=== PATIENT | female | born 1925 | race Caucasian/White ===

== ENCOUNTER 2016-08-15 07:19 | Emergency (ER) | payer BC, MEDICARE, OTHER ==
[~2016-08-15] VITALS: Wt 82.0 kg
[2016-08-15 07:22] VITALS: Wt 82.0 kg
[2016-08-15 07:48] LABS: ADD SCAN DIFF NO
[2016-08-15 07:53] LABS: ABNORMAL IP MESSAGE 1; BASOPHILS % 0.1 % (0.0-2.0); EOSINOPHILS # 0.2 10^3/ul (0.0-0.5); EOSINOPHILS % 0.8 % (0.0-7.0); HEMATOCRIT 30.5 % (37.0-47.0); HEMOGLOBIN 9.3 g/dl (12.0-16.0); LYMPHOCYTES # 5.5 10^3/ul (0.8-2.9); LYMPHOCYTES % 24.3 % (15.0-51.0); MEAN CORPUSCULAR HEMOGLOBIN 28.4 pg (29.0-33.0); MEAN CORPUSCULAR HGB CONC 30.5 g/dl (32.0-37.0); MEAN CORPUSCULAR VOLUME 93.3 fl (82.0-101.0); MEAN PLATELET VOLUME 12.2 fl (7.4-10.4); MONOCYTE # 1.5 10^3/ul (0.3-0.9); MONOCYTES % 6.6 % (0.0-11.0); NEUTROPHIL # 15.2 10^3/ul (1.6-7.5); NEUTROPHILS % 66.8 % (39.0-77.0); NUCLEATED RED BLOOD CELLS% 0.1 /100WBC (0.0-0.0); PLATELET COUNT 386 10^3/UL (140-415); RED BLOOD COUNT 3.27 10^6/ul (4.20-5.40); RED CELL DISTRIBUTION WIDTH 16.9 % (11.5-14.5); WHITE BLOOD COUNT 22.8 10^3/ul (4.8-10.8)
[2016-08-15] MEDS ORDERED: ATOR20TA38 PO (08:01)
[2016-08-15] MEDS ORDERED: ASPI-664 PO (08:01)
[2016-08-15] MEDS ORDERED: NIT4 SL (08:02)
[2016-08-15] MEDS ORDERED: OMEP20CA16 PO (08:02)
[2016-08-15] MEDS ORDERED: BRIM15DR7 BOTH EYES (08:03)
[2016-08-15 08:04] LABS: INR 1.06; PROTIME 13.8 Sec (12.2-14.2); PT RATIO 1.1
[2016-08-15] MEDS ORDERED: DORZ10DR22 BOTH EYES (08:04)
[2016-08-15 08:05] LABS: PARTIAL THROMBOPLASTIN TIME 30.6 Sec (25.0-35.0)
[2016-08-15] MEDS ORDERED: DOCU-159 PO (08:05)
[2016-08-15] MEDS ORDERED: SENN-53 PO (08:06)
[2016-08-15 08:08] LABS: ALBUMIN 3.3 g/dl (3.3-4.9); ALBUMIN/GLOBULIN RATIO 1.13; CALCIUM 9.1 mg/dl (8.4-10.2); CREATININE 1.9 mg/dl (0.44-1.00); POTASSIUM 5.3 mmol/L (3.5-5.1); TOTAL PROTEIN 6.2 g/dl (6.1-8.1)
[2016-08-15] MEDS ORDERED: CLOB15OI15 TOP (08:08)
[2016-08-15] MEDS ORDERED: LORA0.5T PO (08:10)
[2016-08-15] MEDS ORDERED: TRAM-40 PO (08:11)
[2016-08-15] MEDS ORDERED: LATA2.5D2 BOTH EYES (08:11)
[2016-08-15] MEDS ORDERED: ALLO100T PO (08:12)
[2016-08-15] MEDS ORDERED: PRED20TA PO (08:13)
[2016-08-15] MEDS ORDERED: MULT-762 PO (08:14)
[2016-08-15] MEDS ORDERED: CEPH250C PO (08:15)
--- NOTE | 2016-08-15 08:15 | RADRPT ---
PROCEDURE: XR Chest. CLINICAL INDICATION: Chest pain. TECHNIQUE: Single frontal portable chest was obtained. COMPARISON: [id number].. FINDINGS: There is mild cardiomegaly. There is calcification in the thoracic aorta. Upper lobe vasculature i s mildly prominent. There are diffuse interstitial infiltrates with some scattered Ivan B lines. No focal airspace consolidation is seen. There are mid sternotomy wires. There are small bilateral pleural effusions. IMPRESSION: 1. Cardiomegaly with prominence the upper lobe vasculature in diffuse interstitial infiltrates likel y reflecting congestion and mild edema. 2. Small bilateral pleural effusions. 3. No airspace consolidation identified. RPTAT: [facility] Physician Darlin Date Time Electronically viewed and signed by Wilner Brown Physician on 08/15/2016 08:15 /
[2016-08-15] MEDS ORDERED: BTM.05O15 TOP (08:16)
[2016-08-15] MEDS ORDERED: KEN1O TOP (08:18)
[2016-08-15] MEDS ORDERED: IPRA3AMP INHALATION (08:19)
[2016-08-15 08:20] LABS: TROPONIN-I 0.042 ng/ml (0.00-0.12)
[2016-08-15] MEDS ORDERED: FUROSEMIDE 40 MG INJ IV ONE (09:00)
--- NOTE | 2016-08-15 09:19 | ERA ---
ER Documentation Chief Complaint Date/Time DATE: 08/15/16 TIME: 09:13 Chief Complaint cp with mod sob while in restroom this morning. no diaphoresis. no n/v HPI This is a 89-year-old female who was brought in by EMS for acute shortness of breath. Apparently the patient was just discharged from [facility] 2 days ago. Patient states she was getting up to go to the bathroom and walking she became suddenly short of breath. She says she has had no fever no cough but did have a cough 2 weeks ago that is now resolved. She has no chest pain no palpitations no diaphoresis. Apparently the patient is a DO NOT RESUSCITATE. She was brought in distress by EMS ROS All systems reviewed and are negative except as per history of present illness. Medications Home Meds Reported Medications Ipratropium-Albuterol (Ipratropium-Albuterol) 0.5-3 Mg/3 Ml Ampul.neb, 3 ML INHALATION Q4 Y for WHEEZING AND SOB, #30 VIAL 08/15/16 Triamcinolone Acetonide* (Kenalog*) 0.1%-15GM Oint, 1 APPLIC TOP BID, #1 EA 08/15/16 Betamethasone Dipropionate* (Betamethasone Dipropionate*) 0.05% - 15 Gm Oint, 1 APPLIC TOP BID, TUB APPLY TO: 08/15/16 Cephalexin* (Cephalexin*) 250 Mg Capsule, 250 MG PO DAILY, #28 CAP STARTED 08-13-16 FOR 7 DAYS 08/15/16 Multivitamin (MULTI-VITAMIN DAILY) 1 Each Tablet, 1 TAB PO DAILY, TAB 08/15/16 Prednisone* (Prednisone*) 20 Mg Tab, 40 MG PO QAM, TAB STARTED 08-13-16 FOR 2 WEEKS WILL BE TAPERED BY DERMATOLOGY OUTPATIENT 08/15/16 Allopurinol* (Allopurinol*) 100 Mg Tablet, 100 MG PO DAILY, TAB 08/15/16 Tramadol Hcl* (Ultram*) 50 Mg Tablet, 50 MG PO Q8 Y for PAIN, TAB 08/15/16 Latanoprost (Latanoprost) 2.5 Ml Drops, 1 DROP BOTH EYES QHS, #1 BOTTLE 08/15/16 Lorazepam* (Lorazepam*) 0.5 Mg Tablet, 0.25 MG PO BID Y for ANXIETY, TAB 08/15/16 Clobetasol Propionate* (Clobetasol Propionate*) 15 Gm Oint, 1 APPLIC TOP BID Y for PRN, #1 TUB ON SCALP 08/15/16 Sennosides* (Senna Lax*) 8.6 Mg Tablet, 2 TAB PO QHS Y for CONSTIPATION, TAB 08/15/16 Docusate Sodium* (Docusate Sodium*) 100 Mg Capsule, 1-2 CAP PO QHS, #60 CAP 08/15/16 Dorzolamide-Timolol* (Cosopt*) 2%-0.5% - 10 Ml Soln, 1 DROP BOTH EYES BID, BOTTLE 08/15/16 Brimonidine Tartrate* (Brimonidine Tartrate*) 0.2%-15ML Drop Opht, 1 DROP BOTH EYES BID, #1 EA 08/15/16 Omeprazole* (Omeprazole*) 20 Mg Capsule.dr, 20 MG PO DAILY, #30 CAP 08/15/16 Nitroglycerin* (Nitrostat*) 0.4 Mg Tab.subl, 0.4 MG SL Q5MIN Y for CHEST PAIN, BOTTLE 08/15/16 Atorvastatin Calcium* (Atorvastatin Calcium*) 20 Mg Tablet, 20 MG PO QHS, #30 TAB 08/15/16 Aspirin (Low Dose Aspirin) 81 Mg Tablet.dr, 81 MG PO DAILY, #30 TAB 08/15/16 Allergies Allergies: Coded Allergies: No Known Drug Allergy (Verified Allergy, Mild, 08/15/16) adhesive tape (Unverified Allergy, Unknown, SKIN RASH/HIVES, 08/15/16) PMhx/Soc Hx Respiratory Disorders: Yes (copd. chf. dm. high cholesterol . open heart ) Hx Tobacco Use: Yes Smoking Status: Former smoker FmHx Family History: No coronary disease Physical Exam Vitals Vital Signs Date Time Temp Pulse Resp B/P Pulse Ox O2 Delivery O2 Flow Rate FiO2 08/15/16 07:36 123 100 100 08/15/16 07:22 97.9 132 30 130/91 98 Physical Exam Const: Well-developed, well-nourished acute respiratory distress Head: Atraumatic, normocephalic Eyes: Normal Conjunctiva, PERRLA, EOMI, normal sclera, no nystagmus ENT: Normal External Ears, Nose and Mouth, moist mucus membranes. Neck: Full range of motion. No meningismus, no lymphadenopathy. Resp: Acute respiratory distress with difficulty breathing using accessory muscles, diffuse scattered rhonchi decreased breath sounds bilaterally Cardio: Irregular rate and rhythm heart rate 120, no murmurs, S1 S2 present Abd: Soft, non tender x 4, non distended. Normal bowel sounds, no guarding or rebound, no pulsitile abdominal masses or bruits Skin: No petechiae or rashes, no ecchymosis , no maculopapular rash Back: No midline or flank tenderness Ext: No cyanosis, or edema, FROM x 4, normal inspection, neurovascularly intact x 4, bilateral legs and left upper extremity are bandaged with Kerlix Neur: Awake and alert, STR 5/5 x 4, sensation intact x 4, no focal findings, cerebellum intact Psych: Normal Mood and Affect Result Diagram: 08/15/16 0732 08/15/16 0732 Results 24 hrs Laboratory Tests Test 08/15/16 07:32 White Blood Count 22.810^3/ul Red Blood Count 3.2710^6/ul Hemoglobin 9.3g/dl Hematocrit 30.5% Mean Corpuscular Volume 93.3fl Mean Corpuscular Hemoglobin 28.4pg Mean Corpuscular Hemoglobin Concent 30.5g/dl Red Cell Distribution Width 16.9% Platelet Count 92381^3/UL Mean Platelet Volume 12.2fl Neutrophils % 66.8% Lymphocytes % 24.3% Monocytes % 6.6% Eosinophils % 0.8% Basophils % 0.1% Nucleated Red Blood Cells % 0.1/100WBC Neutrophils # 15.210^3/ul Lymphocytes # 5.510^3/ul Monocytes # 1.510^3/ul Eosinophils # 0.210^3/ul Basophils # 0.010^3/ul Nucleated Red Blood Cells # 0.010^3/ul Prothrombin Time 13.8Sec Prothrombin Time Ratio 1.1 INR International Normalized Ratio 1.06 Activated Partial Thromboplast Time 30.6Sec Sodium Level 130mmol/L Potassium Level 5.3mmol/L Chloride Level 100mmol/L Carbon Dioxide Level 22mmol/L Anion Gap 13 Blood Urea Nitrogen 84mg/dl Creatinine 1.90mg/dl Glucose Level 225mg/dl Calcium Level 9.1mg/dl Total Bilirubin 0.0mg/dl Direct Bilirubin 0.00mg/dl Indirect Bilirubin 0.0mg/dl Aspartate Amino Transf (AST/SGOT) 29IU/L Alanine Aminotransferase (ALT/SGPT) 28IU/L Alkaline Phosphatase 92IU/L Troponin I 0.042ng/ml B-Type Natriuretic Peptide 95438XV/ML Total Protein 6.2g/dl Albumin 3.3g/dl Globulin 2.90g/dl Albumin/Globulin Ratio 1.13 Current Medications Medications (Trade) Dose Ordered Sig/Kimberlee Route PRN Reason Start Time Stop Time Status Last Admin Dose Admin Furosemide (Lasix) 60 mg ONCE ONCE IV 08/15/16 09:00 08/15/16 09:01 DC Procedures/MDM EKG: Rate/Rhythm: Atrial fibrillation with rapid ventricular response heart rate 122, inferior Q waves, QRS, ST, QT: NORMAL MO, QRS, QT] Impression: Atrial fibrillation with rapid ventricular response PROCEDURE: XR Chest. CLINICAL INDICATION: Chest pain. TECHNIQUE: Single frontal portable chest was obtained. COMPARISON: [id number].. FINDINGS: There is mild cardiomegaly. There is calcification in the thoracic aorta. Upper lobe vasculature is mildly prominent. There are diffuse interstitial infiltrates with some scattered Ivan B lines. No focal airspace consolidation is seen. There are mid sternotomy wires. There are small bilateral pleural effusions. IMPRESSION: 1. Cardiomegaly with prominence the upper lobe vasculature in diffuse interstitial infiltrates likely reflecting congestion and mild edema. 2. Small bilateral pleural effusions. 3. No airspace consolidation identified. RPTAT: [facility] Physician Darlin Date Time Electronically viewed and signed by Wilner Brown Physician on 08/15/2016 08: 15 JH/ CC: VICTOR M LENNON DO Patient was promptly put on BiPAP on arrival. Patient was requiring intubation however she is a DNR. BiPAP was successful in converting her distress. The patient has markedly improved respirations. She is currently resting comfortably. Heart rate is now in atrial fibrillation at 94 beats She was given intravenous Lasix 60 mg IV, will attempt to wean off BiPAP soon Family is at bedside and wants her transferred to [facility] No evidence of pneumonia on chest x-ray there is diffuse bilateral interstitial edema, white blood count is 22.8 likely demargination from stress. Patient does not clinically present with pneumonia Critical Care Time: 35 minutes Treatments/Evaluations: Close monitoring and treatment of unstable vital signs, cardiorespiratory, and neurologic status, while maintaining tight balance of fluid, respiratory, and cardiac interventions. This time includes discussing the case with the patient and the patient's family. This time does not include all procedures stated elsewhere in this record. This time also includes reviewing old records, labs and radiological studies. This time includes examining and re-examining the patient. Additionally, this time also includes arranging care with admitting and consulting physicians. We will call [facility] and speak with him and arrange transfer to [facility] Diagnosis: Primary Impression: Respiratory distress Additional Impression: Flash pulmonary edema Condition: Stable VICTOR M LENNON DO Aug 15, 2016 09:19
[2016-08-15 10:23] VITALS: BP 124/71; PULSE 105; RESP 22; TEMP 98.6
== END 2016-08-15 11:26 | disposition short-term general hospital (02) ==
LOC: E/R 07:19
DX: R06.00 Dyspnea, unspecified (principal); J81.0 Acute pulmonary edema
CPT/HCPCS: 71010; 80053; 83880; 84484; 85025; 85610; 85730; 93005; 94660; J1940; 36415; 96374